=== PATIENT | male | born 1970 | race Caucasian/White ===

== ENCOUNTER 2021-04-30 23:44 | Outpatient (CLI) | payer BC ==
[2021-05-01 00:54] LABS: SARS-CoV-2 NAA Rapid Test DETECTED (NotDetected)
== END 2021-04-30 23:45 | disposition home or self-care (01) ==
LOC: NAV LAB 23:44
PROVIDERS: ATTEND Emergency Medicine
DX: U07.1 COVID-19 (principal)
CPT/HCPCS: U0002